=== PATIENT | male | born 1970 | race Caucasian/White ===

== ENCOUNTER 2022-09-01 07:14 | Day surgery (SDC) | payer OTHER ==
[~2022-09-01] VITALS: Ht 180.3 cm; Wt 111.0 kg
--- NOTE | 2022-09-01 07:03 | NUR ---
Patient arrived to the ANR suite, identification and demographics confirmed. Patient to room 8, AAO and ambulatory, vitals obtained. ID/allergy/fall bands placed, changed into hospital gown, procedure and timeline explained. All questions answered, patient presents no concerns at this time.
--- NOTE | 2022-09-01 07:26 | NUR ---
Dr. Lin telephoned with patient intake information including usage, dose, last dose/time taken and initial vital signs. Patient history and allergies reviewed with MD. Orders received for 10 mg PO Valium and 0.3 mg PO Clonidine now. Will reassess per protocol in 1.5 hours and update MD with assessment and vitals.
[2022-09-01 07:35] LABS: HEMATOCRIT 44.5 % (39.0-50.0); HEMOGLOBIN 15.4 g/dl (14.0-18.0); IMMATURE GRANULOCYTES 0.2 % (0.0-5.0); MEAN CELL VOLUME 92.1 fL CALC (80.0-100.0); MEAN CORPUSCULAR HGB 31.9 pG CALC (26.0-32.0); MEAN CORPUSCULAR HGB CONC 34.6 g/dL CAL (32.0-36.0); NEUT# 2.59 thou/uL (1.82-7.42); RED BLOOD COUNT 4.83 mill/uL (4.70-6.10); RED CELL DISTRI WIDTH 14.4 % (11.5-15.5)
[2022-09-01 07:40] VITALS: BP 142/91
[2022-09-01 08:04] LABS: ALBUMIN 4.7 g/dL (3.2-5.0); ALKALINE PHOSPHATASE 59 u/l (38-126); ANION GAP 14 (6-22 (CALC)); BILIRUBIN, TOTAL 0.6 mg/dL (0.0-1.4); BUN 10 mg/dL (9-20); BUN/CREATININE RATIO 10 (12-20 (CALC)); CARBON DIOXIDE 29 mmol/l (22-30); CHLORIDE 99 mmol/l (95-108); GFR FOR AFR.AMER. > 60 ML/MIN (>=60 (CALC)); GFR OTHER RACES > 60 ML/MIN (>=60 (CALC)); SGOT/AST 38 u/l (17-59); SODIUM 139 mmol/l (137-146); TOTAL PROTEIN 6.9 g/dL (6.3-8.2)
[2022-09-01] MEDS ORDERED: LISINOPRIL10 MG PO (08:19)
[2022-09-01] MEDS ORDERED: TAMSULOSIN HCL0.4 MG PO (08:20)
--- NOTE | 2022-09-01 09:32 | NUR ---
Dr. Lin telephoned with reassessment and new vital signs. Reviewed initial Valium and Clonidine dose with MD. Per Dr. Lin no new orders at this time.
--- NOTE | 2022-09-01 12:45 | NUR ---
Induction Note Patient to [facility] procedure room. Time out performed at 1245. Patient placed on monitors, Mary hugger, bilateral wrist restraints applied for ET tube protection. Versed 5mg given IV push at 1246 Tourniquet applied to Right arm Lidocaine 100mg given [id number] IV push followed by Rocoronium 10mg at 1248 IV push and held for 90 seconds. Propofol bolus of 130mg given at 1249 IV push. Succinylcholine 80mg given IV push at 1250. Smooth intubation with 7.5 ETT. Positive CO2. Positive Auscultation for air exchange. Patient placed on ventilator for spontaneous ventilation. Placed on Propofol IV drip at 1251. OG inserted. Positive air on auscultation. Positive gastric content. Stomach washed at this time. Naltrexone 50mg given via OG tube with Clonidine 0.2 mg given via OG Tube. OG clamped for 45 minutes. Will monitor patient for symptoms of withdrawal and adjust propfol accordingly.
--- NOTE | 2022-09-01 13:47 | NUR ---
OG open note OG open at this time. Gastric content draining into drainage bag. OG to drain for 45 minutes. Propofol will be titrated down based on patient.
--- NOTE | 2022-09-01 14:35 | NUR ---
OG close note Stomach washed at this time. Naltrexone 50 mg with Clonidine 0.2 mg via OG tube. OG will be clamped for 45 minutes.
[2022-09-01] MEDS ORDERED: CLONIDINE0.1 MG PO (15:33)
[2022-09-01] MEDS ORDERED: NALTREXONE50 MG PO (15:33)
[2022-09-01] MEDS ORDERED: KLONOPIN2 MG PO (15:34)
--- NOTE | 2022-09-01 17:25 | NUR ---
PATIENT BLOOD PRESSURE LOW. SEE CHART FOR VITALS. PER DR. Lin GIVE BISI 1CC NOW.MED GIVEN
--- NOTE | 2022-09-01 17:42 | NUR ---
PATIENT BLOOD PRESSURE LOW. SEE CHART FOR VITALS. PER DR. Lin GIVE BISI 1CC NOW.MED GIVEN
--- NOTE | 2022-09-01 18:02 | NUR ---
OG close note Stomach washed at this time. Clonidine 0.1 mg via OG tube. OG will be clamped for 25 minutes.
--- NOTE | 2022-09-01 18:38 | NUR ---
Extubation note Closing medications given Benadryl 50mg IV push, Decadron 10mg IV push,Magnesium 4 grams IV, Zofran 8mg IV push, Octreotide 100mcg SC. Stomach washed out prior to extubation. Suctioned gastric content. OG removed. Patient extubated. Propofol Discontinued. Wrist restraints removed. Mary hugger Removed. See ANR Moderate sedate recovery record for further notes and assessment.
--- NOTE | 2022-09-01 19:07 | NUR ---
PATIENT TRANSFERED TO [facility]. REPORT GIVEN TO IN CLASS SPECIAL EDUCATION TEACHER NURSE. PATIENT VITAL STABLE. O2 SATS 96% ON 2L NC. NO SXS OF DISTRESS. NO QUESTIONS OR CONCERNS FROM NIGHT NURSE.
[2022-09-01 19:10] VITALS: BP 103/49
--- NOTE | 2022-09-01 19:52 | NUR ---
PATIENT RESTING IN BED WITH HOB ELEVATED. NO SIGNS OF DISTRESS. O2 AT 2L VIA NC. BED REMAINS IN LOW POSITION. BED ALARM ACTIVE FOR SAFETY.
[2022-09-01 22:48] VITALS: BP 159/91
--- NOTE | 2022-09-01 23:48 | NUR ---
PATIENT RESTING IN BED ON HIS RIGHT SIDE. FREQUENT REMINDING AND REDIRECTION ON ASKING FOR ASSISTANCE INSTEAD OF CLIMBING OUT OF BED BY HIMSELF. PATIENT DOES GET RUDE WITH STAFF AT TIMES. PRN TYLENOL WAS GIVEN FOR HEADACHE. PATIENT REMAINS ALERT AND USES URINAL WHEN NEEDED. HE HAS GONE FROM RESTING IN THE RECLINER TO BACK TO BED. BED REMAINS IN LOW POSITION. BED ALARM ACTIVE. CALL [facility] IN REACH.
[2022-09-02 03:48] VITALS: BP 146/77
[2022-09-02 03:57] LABS: HEMATOCRIT 44.3 % (39.0-50.0); HEMOGLOBIN 15.4 g/dl (14.0-18.0); IMMATURE GRANULOCYTES 0.3 % (0.0-5.0); MEAN CELL VOLUME 92.1 fL CALC (80.0-100.0); MEAN CORPUSCULAR HGB CONC 34.8 g/dL CAL (32.0-36.0); NEUT# 7.01 thou/uL (1.82-7.42); RED BLOOD COUNT 4.81 mill/uL (4.70-6.10); RED CELL DISTRI WIDTH 14.6 % (11.5-15.5)
[2022-09-02 04:07] LABS: ALBUMIN 3.9 g/dL (3.2-5.0); ALKALINE PHOSPHATASE 52 u/l (38-126); ANION GAP 12 (6-22 (CALC)); BILIRUBIN, TOTAL 0.5 mg/dL (0.0-1.4); BUN 9 mg/dL (9-20); BUN/CREATININE RATIO 10 (12-20 (CALC)); CARBON DIOXIDE 26 mmol/l (22-30); CHLORIDE 106 mmol/l (95-108); CREATININE 0.9 mg/dL (0.7-1.3); GFR FOR AFR.AMER. > 60 ML/MIN (>=60 (CALC)); GFR OTHER RACES > 60 ML/MIN (>=60 (CALC)); MAGNESIUM 2.3 mg/dL (1.6-2.3); POTASSIUM 4.3 mmol/l (3.5-5.1); SGOT/AST 35 u/l (17-59); SODIUM 140 mmol/l (137-146); TOTAL PROTEIN 6.2 g/dL (6.3-8.2)
--- NOTE | 2022-09-02 04:34 | NUR ---
PATIENT RESTING IN BED. CHANGES POSITION BY HIMSELF. ALERT AND ABLE TO MAKE NEEDS KNOWN. BED REMAINS IN LOW POSITION. CALL [facility] IN REACH. BED ALARM REMAINS ACTIVE.
[2022-09-02 07:45] VITALS: BP 142/71
[2022-09-02 07:47] VITALS: BP 142/72
--- NOTE | 2022-09-02 08:00 | NUR ---
RECEIVED REPORT FROM PRE K TEACHER RN. PATIENT RESTING IN BED IN SUPINE POSITION WITH EYES CLOSED. PATIENT IN ROOM AIR. ASSESSMENT COMPLETED. PATIENT IS A&O. PATIENT COMPLAINED OF ACHING, TYLENOL GIVEN. NO OTHER SIGNS OF DISTRESS NOTED NOR VERBALIZED AT THIS TIME. BED IN LOWEST POSITION, CALL LIGHT WITHIN REACH, SAFETY PRECAUTIONS IN PLACE.
--- NOTE | 2022-09-02 12:00 | NUR ---
PATIENT IS AWAKE, RESTING IN BED IN LOW SEMI-CRUZ'S POSITION. NO SIGNS OF DISTRESS NOTED NOR VERBALIZED BY PATIENT AT THIS TIME. BED IN LOWEST POSITION, CALL LIGHT WITHIN REACH.
--- NOTE | 2022-09-02 15:19 | NUR ---
Discharge instructions given. Patient verbalizes understanding of same. Discharged in stable condition via Wheelchair to Home with staff. All belongings sent with pt.
== END 2022-09-02 15:19 | disposition home or self-care (01) | DRG 897 ==
LOC: ANR 07:14 → ANR-I 07:14 → MS2 19:07 → ANR 09-02 15:19
PROVIDERS: ATTEND Anesthesiology
DX: F11.20 Opioid dependence, uncomplicated (principal); I10 Essential (primary) hypertension
CPT/HCPCS: J2354; J3475